=== PATIENT | female | born 1990 | race Caucasian/White ===

== ENCOUNTER 2017-07-20 17:57 | Emergency (ER) | payer SELFPAY ==
[2017-07-20 18:43] VITALS: BP 140/86
[2017-07-20 19:20] LABS: Basophils % (Auto) 0.2 % (0.0-1.8); Eosinophils # (Auto) 0.2 K/mm3 (0.0-0.4); Eosinophils % (Auto) 1.8 % (0.0-4.3); Hematocrit 42.2 % (30.3-42.9); Hemoglobin 14.1 gm/dl (10.1-14.3); Lymphocytes # (Auto) 1.6 K/mm3 (1.2-5.4); Mean Corpuscular HGB Conc 33 % (30-34); Mean Corpuscular Hemoglobin 29 pg (28-32); Mean Corpuscular Volume 86 fl (79-97); Monocytes # (Auto) 0.5 K/mm3 (0.0-0.8); Monocytes % (Auto) 4.2 % (0.0-7.3); Platelet Count 366 K/mm3 (140-440); Red Blood Count 4.92 M/mm3 (3.65-5.03); Red Cell Distribution Width 12.6 % (13.2-15.2)
[2017-07-20 19:25] LABS: Bilirubin,Urine NEG (Negative); Blood,Urine LG (Negative); Color,Urine Red (Yellow); Nitrite,Urine NEG (Negative); WBC,Urine < 1.0 /HPF (0.0-6.0)
[2017-07-20 19:26] LABS: HCG Qualitative,Urine Negative (Negative)
[2017-07-20 19:33] LABS: Alanine Aminotransferase 14 units/L (7-56); Albumin 4.3 g/dL (3.9-5); BUN/Creatinine Ratio 11; Blood Urea Nitrogen 8 mg/dL (7-17); Calcium 8.8 mg/dL (8.4-10.2); Hemolysis Index 4; Lipase 38 units/L (13-60)
== END 2017-07-21 09:00 | disposition left against medical advice (07) ==
LOC: ED 17:57
DX: R11.2 Nausea with vomiting, unspecified (principal); M79.1 Myalgia; Z53.21 Procedure and treatment not carried out due to patient leaving prior to being seen by health care provider
CPT/HCPCS: 36415; 80053; 81001; 81025; 83690; 85025

== ENCOUNTER 2017-07-26 19:34 | Emergency (ER) | payer MEDICAID ==
[2017-07-26 21:08] LABS: Hematocrit 39.4 % (30.3-42.9); Hemoglobin 13.4 gm/dl (10.1-14.3); Mean Corpuscular HGB Conc 34 % (30-34); Mean Corpuscular Hemoglobin 29 pg (28-32); Mean Corpuscular Volume 86 fl (79-97); Platelet Count 340 K/mm3 (140-440); Red Cell Distribution Width 12.4 % (13.2-15.2)
[2017-07-26 21:28] LABS: BUN/Creatinine Ratio 10; Blood Urea Nitrogen 7 mg/dL (7-17); Calcium 8.7 mg/dL (8.4-10.2); Hemolysis Index 15
[2017-07-26] MEDS ORDERED: NACL 0.9% 1000 ML 1,000 ML IV ONE (21:46)
--- NOTE | 2017-07-26 21:57 | Emergency Department Report ---
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 Patient apparently had a biopsy performed on a mass or her tongue 3 years ago prior to developing this mass to the roof of her mouth. She states it was not cancerous. Patient recently moved to the area and does not have a local ENT doctor. Patient complains of weight gain. She denies recent weight loss. Patient was here on the to be seen for nausea, vomiting, and diarrhea symptoms. She left prior to evaluation reports that she has been able to tolerate by mouth intake since. - Related Data Previous Rx's Medication Instructions Recorded Last Taken Type Ibuprofen [Motrin] 800 mg PO Q8HR PRN #30 tablet 07/27/17 Unknown Rx traMADol [Ultram 50 MG tab] 50 mg PO Q6HR PRN #20 tablet 07/27/17 Unknown Rx Allergies Allergy/AdvReac Type Severity Reaction Status Date / Time No Known Allergies Allergy Unverified 07/20/17 18:43 ED Review of Systems ROS: Stated complaint: FLU SX Other details as noted in HPI Comment: All other systems reviewed and negative Other: Constitutional: No fevers Eyes: No eye pain visual changes or discharge ENT: + sore throat Neck: Denies pain Respiratory: Denies cough wheezing shortness of breath Cardiovascular: Denies chest pain, palpitations, syncope GI: Denies abdominal pain, nausea, vomiting, diarrhea : Denies dysuria Musculoskeletal: Denies back pain Skin: Denies rash, lesions, erythema Neurologic: Denies headache, numbness, weakness Psychiatric: Denies suicidal ideation, hallucinations ED Past Medical Hx - Past Medical History Previous Medical History?: Yes Additional medical history: Anemia, Sickle Cell Trait, mass in mouth she has had 3-4 months - Surgical History Past Surgical History?: Yes Additional Surgical History: Tongue Biopsy, Left Knee surgery - Social History Smoking Status: Never Smoker - Medications Home Medications: Home Medications Medication Instructions Recorded Confirmed Last Taken Type Ibuprofen [Motrin] 800 mg PO Q8HR PRN #30 tablet 07/27/17 Unknown Rx traMADol [Ultram 50 MG tab] 50 mg PO Q6HR PRN #20 tablet 07/27/17 Unknown Rx ED Physical Exam - General Limitations: No Limitations - Other Other exam information: General: No limitations, patient is alert in no acute distress Head exam: Atraumatic, normocephalic Eyes exam: Normal appearance, pupils equal reactive to light, extraocular movements intact ENT: Moist mucous membrane, hard palette aprox 5mm raised circular lesion on the left. No pharyngeal exudate Neck exam: Normal inspection, full range of motion Respiratory exam: Clear to auscultation bilateral, no wheezes, rales, crackles Cardiovascular: Normal rate and rhythm, normal heart sounds Abdomen: Soft, nondistended, and nontender, with normal bowel sounds, no rebound, or guarding Extremity: Full range of motion normal inspection no deformity Back: Normal Inspection, full range of motion, no tenderness Neurologic: Alert, oriented x3, cranial nerves intact, no motor or sensory deficit Psychiatric: normal affect, normal mood Skin: Warm, dry, intact ED Course Vital Signs 07/26/17 07/26/17 07/26/17 20:28 21:36 21:45 Temperature 98.3 F 99.9 F H Pulse Rate 106 H 90 89 Pulse Rate [ Lying] Respiratory 20 13 10 L Rate Blood Pressure 127/84 124/78 Blood Pressure 124/78 [Left] Blood Pressure [Lying] O2 Sat by Pulse 98 100 98 Oximetry 07/26/17 07/26/17 07/26/17 21:51 22:00 22:04 Temperature Pulse Rate 120 H Pulse Rate [ 95 H Lying] Respiratory 16 15 Rate Blood Pressure 131/90 Blood Pressure [Left] Blood Pressure 117/76 [Lying] O2 Sat by Pulse 98 100 Oximetry 07/26/17 07/26/17 07/26/17 22:15 22:30 22:45 Temperature Pulse Rate 82 80 83 Pulse Rate [ Lying] Respiratory 16 12 15 Rate Blood Pressure 131/90 105/70 105/70 Blood Pressure [Left] Blood Pressure [Lying] O2 Sat by Pulse 97 99 100 Oximetry 07/26/17 07/26/17 07/26/17 23:00 23:15 23:30 Temperature Pulse Rate 79 78 77 Pulse Rate [ Lying] Respiratory 17 17 13 Rate Blood Pressure 116/77 116/77 107/56 Blood Pressure [Left] Blood Pressure [Lying] O2 Sat by Pulse 98 100 100 Oximetry 07/26/17 07/27/17 23:45 00:00 Temperature Pulse Rate 85 78 Pulse Rate [ Lying] Respiratory 12 16 Rate Blood Pressure 107/56 107/60 Blood Pressure [Left] Blood Pressure [Lying] O2 Sat by Pulse 99 99 Oximetry - Reevaluation(s) Reevaluation #1: 07/27/17 00:15 Patient for the better after ED treatment ED Medical Decision Making - Lab Data Result diagrams: 07/26/17 20:55 07/26/17 20:55 Lab Results 07/26/17 07/26/17 07/26/17 Range/Units 20:55 20:55 20:55 WBC 9.2 (4.5-11.0) K/mm3 RBC 4.60 (3.65-5.03) M/mm3 Hgb 13.4 (10.1-14.3) gm/dl Hct 39.4 (30.3-42.9) % MCV 86 (79-97) fl MCH 29 (28-32) pg MCHC 34 (30-34) % RDW 12.4 L (13.2-15.2) % Plt Count 340 (140-440) K/mm3 Sodium 141 (137-145) mmol/L Potassium 4.0 (3.6-5.0) mmol/L Chloride 100.8 (98-107) mmol/L Carbon Dioxide 27 (22-30) mmol/L Anion Gap 17 mmol/L BUN 7 (7-17) mg/dL Creatinine 0.7 (0.7-1.2) mg/dL Estimated GFR > 60 ml/min BUN/Creatinine Ratio 10 % Glucose 105 H (65-100) mg/dL Calcium 8.7 (8.4-10.2) mg/dL TSH 1.640 (0.270-4.200) mlU/mL Free T4 1.22 (0.76-1.46) ng/dL Urine Color (Yellow) Urine Turbidity (Clear) Urine pH (5.0-7.0) Ur Specific [place] (1.003-1.030) Urine Protein (Negative) mg/dL Urine Glucose (UA) (Negative) mg/dL Urine Ketones (Negative) mg/dL Urine Blood (Negative) Urine Nitrite (Negative) Urine Bilirubin (Negative) Urine Urobilinogen (<2.0) mg/dL Ur Leukocyte Esterase (Negative) Urine WBC (Auto) (0.0-6.0) /HPF Urine RBC (Auto) (0.0-6.0) /HPF U Epithel Cells (Auto) (0-13.0) /HPF Urine Bacteria (Auto) (Negative) /HPF Urine HCG, Qual (Negative) 07/26/17 Range/Units 21:38 WBC (4.5-11.0) K/mm3 RBC (3.65-5.03) M/mm3 Hgb (10.1-14.3) gm/dl Hct (30.3-42.9) % MCV (79-97) fl MCH (28-32) pg MCHC (30-34) % RDW (13.2-15.2) % Plt Count (140-440) K/mm3 Sodium (137-145) mmol/L Potassium (3.6-5.0) mmol/L Chloride (98-107) mmol/L Carbon Dioxide (22-30) mmol/L Anion Gap mmol/L BUN (7-17) mg/dL Creatinine (0.7-1.2) mg/dL Estimated GFR ml/min BUN/Creatinine Ratio % Glucose (65-100) mg/dL Calcium (8.4-10.2) mg/dL TSH (0.270-4.200) mlU/mL Free T4 (0.76-1.46) ng/dL Urine Color Yellow (Yellow) Urine Turbidity Clear (Clear) Urine pH 7.0 (5.0-7.0) Ur Specific [place] 1.016 (1.003-1.030) Urine Protein <15 mg/dl (Negative) mg/dL Urine Glucose (UA) Neg (Negative) mg/dL Urine Ketones Neg (Negative) mg/dL Urine Blood Neg (Negative) Urine Nitrite Neg (Negative) Urine Bilirubin Neg (Negative) Urine Urobilinogen 4.0 (<2.0) mg/dL Ur Leukocyte Esterase Tr (Negative) Urine WBC (Auto) 1.0 (0.0-6.0) /HPF Urine RBC (Auto) 1.0 (0.0-6.0) /HPF U Epithel Cells (Auto) 2.0 (0-13.0) /HPF Urine Bacteria (Auto) 1+ (Negative) /HPF Urine HCG, Qual Negative (Negative) - Medical Decision Making Patient has generalized weakness and fatigue likely related to recent viral infection. Patient has nausea, vomiting, and diarrhea within the past week that has since improved but continued to not feel well. Patient did have some increase in heart rate with standing Patient received Motrin and 1 L normal saline with improvement in symptoms Plan to discharge patient home with follow-up for further reduction of chronic intraoral lesion and further evaluation and monitoring her symptoms - Differential Diagnosis viral syndrome, anemia, thyroid disease, cancer, dehydration, pharyngitis Critical Care Time: No Critical care attestation.: If time is entered above; I have spent that time in minutes in the direct care of this critically ill patient, excluding procedure time. ED Disposition Clinical Impression: Viral syndrome, Fatigue, Mass of hard palate Disposition: TO HOME OR SELFCARE Is pt being admited?: No Does the pt Need Aspirin: No Condition: Stable Instructions: Viral Syndrome (ED), Fatigue (ED) Additional Instructions: Take the medication as prescribed. Follow-up with your primary care doctor or the doctor/clinic provided. Return if symptoms worsen as indicated by a discharge instructions Prescriptions: Ibuprofen [Motrin] 800 mg PO Q8HR PRN #30 tablet PRN Reason: Pain traMADol [Ultram 50 MG tab] 50 mg PO Q6HR PRN #20 tablet PRN Reason: Pain Referrals: EDEN PONCE MD [Primary Care Provider] - 3-5 Days (Primary care doctor ) ASHLEY KHAN MD [Staff Physician] - 3-5 Days (ENT doctor) DUKE MENDEZ MD [Staff Physician] - 3-5 Days (ENT doctor) [facility] [Provider Group] - 3-5 Days (Primary care clinic) Time of Disposition: 00:20
[2017-07-26 22:11] LABS: Bacteria,Urine 1+ /HPF (Negative); Bilirubin,Urine NEG (Negative); Blood,Urine NEG (Negative); Color,Urine Yellow (Yellow); Nitrite,Urine NEG (Negative); Protein,Urine <15 mg/dL mg/dL (Negative)
[2017-07-26 22:12] LABS: HCG Qualitative,Urine Negative (Negative)
[2017-07-26 22:21] LABS: Free T4 (Free Thyroxine) 1.22 ng/dL (0.76-1.46)
[2017-07-26] MEDS ORDERED: TORADOL IV ONE (22:31)
[2017-07-27 01:14] VITALS: BP 107/85
== END 2017-07-27 01:23 | disposition home or self-care (01) ==
LOC: ED 19:34
DX: B34.9 Viral infection, unspecified (principal); R53.83 Other fatigue; D64.9 Anemia, unspecified
CPT/HCPCS: 36415; 80048; 81001; 81025; 84439; 84443; 85027; 87116; 87430; 96361; 96374; 99283; J1885; J7030